=== PATIENT | female | born 1995 | race Hispanic/Latino ===

== ENCOUNTER 2023-01-10 15:20 | Observation (INO) | payer MEDICAID ==
[~2023-01-10] VITALS: Ht 157.5 cm; Wt 80.3 kg
[~2023-01-10 15:20] MED LIST: ACET-2079 PO; DOXY-469 PO
[2023-01-10 15:45] LABS: BILIRUBIN,URINE NEGATIVE (NEGATIVE); COLOR,URINE YELLOW (YELLOW); GLUCOSE, URINE (UA) NEGATIVE (NEGATIVE); KETONES,URINE NEGATIVE (NEGATIVE); LEUKOCYTE ESTERASE ,URINE 500 Leu/uL (NEGATIVE); NITRATE,URINE NEGATIVE (NEGATIVE); PROTEIN,URINE 20 mg/dL (NEGATIVE); UROBILINOGEN,URINE 0.2 mg/dL (0.2-1.0)
[2023-01-10 15:47] LABS: APPEARANCE,URINE HAZY (CLEAR)
[2023-01-10 15:50] LABS: BACTERIA,URINE FEW /HPF (None Seen); MUCUS,URINE RARE LPF (None Seen); SQUAMOUS EPITHELIAL CELL,UR FEW /HPF (0-2); WBC,URINE TNTC /HPF (0-1)
[2023-01-10] MEDS ORDERED: LACTATED RINGERS 1000ML 1,000 ML IV SCH (16:00)
[2023-01-10] MEDS ORDERED: CEFTRIAXONE 1G VIAL IVPB ONE (17:00)
[2023-01-10 17:25] VITALS: BP 124/65
== END 2023-01-10 17:25 | disposition home or self-care (01) ==
LOC: EDH 15:20 → LDH 15:21
PROVIDERS: ADMIT Obstetrics & Gynecology; ATTEND Obstetrics & Gynecology
DX: O62.9 Abnormality of forces of labor, unspecified (principal); O26.852 Spotting complicating pregnancy, second trimester; Z3A.27 27 weeks gestation of pregnancy; Z79.899 Other long term (current) drug therapy
CPT/HCPCS: 96361; 96365; 59025; 87077; 87088; 87186; 81001; G0378 ×2; G0379; J7120 ×2; J0696; 96360